=== PATIENT | female | born 1990 | race Caucasian/White ===

== ENCOUNTER 2021-02-23 13:00 | Emergency (ER) | payer BC ==
[2021-02-23] MEDS ORDERED: Ketorolac Tromethamine 30 MG/ML VIAL ONE (14:08)
[2021-02-23 14:22] LABS: #Eosinphils 0.1 10x3/uL (0.0-0.5); #Monocytes 0.8 10x3/uL (0.0-1.1); #Neutrophils 6.1 10x3/uL (1.5-8.4); %Basophils 0.3 % (0.0-2.0); %Lymphocytes 25.9 % (18.0-47.0); %Neutrophils 64.6 % (40.0-75.0); Hemoglobin 12.5 g/dL (12.0-15.5); Mean Corpuscular HGB CONC 32.6 g/dL (32.0-36.0); Mean Corpuscular Hemoglobin 26.4 pg (27.0-33.0); Mean Corpuscular Volume 80.8 fl (81.6-98.3); Mean Platelet Volume 11.2 fl (7.4-10.4); Platelet Count 295 10x3/uL (150-450); RBC Distribution Width 14.6 % (11.5-14.5); Red Blood Cell (RBC) Count 4.74 10x6/uL (3.90-5.03); White Blood Cell (WBC) Count 9.4 10x3/uL (3.5-10.5)
[2021-02-23 14:41] LABS: ALT (SGPT) 36 U/L (8-55); AST (SGOT) 47 U/L (5-34); Albumin 4.1 g/dL (3.5-5.0); Alkaline Phosphatase 88 U/L (40-110); Anion Gap 18 mmol/L (10-20); BUN (Urea Nitrogen) 9 mg/dL (7.0-18.7); Bilirubin, Total 0.8 mg/dL (0.2-1.2); Calc. Creatinine Clearance 0 mL/min (70-130); Carbon Dioxide 20 mmol/L (22-29); Chloride 105 mmol/L (98-107); Globulin 3.7 g/dL (2.4-3.5); Glucose 90 mg/dL (70-105); Potassium 5.6 mmol/L (3.5-5.1); Protein, Total 7.8 g/dL (6.0-8.3); Sodium 137 mmol/L (136-145)
[2021-02-23] MEDS ORDERED: Fentanyl 100 MCG/2 ML VIAL ONE (15:25)
== END 2021-02-23 16:15 | disposition home or self-care (01) ==
LOC: CSHERS 13:00
DX: R07.89 Other chest pain (principal); M79.7 Fibromyalgia; K21.9 Gastro-esophageal reflux disease without esophagitis
CPT/HCPCS: 36415; 71045; 80053; 84484; 85025; 85379; 93005; 96374; 96375; J1885; J3010

== ENCOUNTER 2022-03-04 08:12 | Outpatient (CLI) | payer BC | END 2022-03-04 08:13 | disposition home or self-care (01) | LOC: CSHWCC 08:12 | PROVIDERS: ATTEND Nurse Practitioner Family | DX: T81.89XD Other complications of procedures, not elsewhere classified, subsequent encounter (principal) | CPT/HCPCS: 97607; 99203; G0463 ==

== ENCOUNTER 2022-03-11 09:02 | Outpatient (CLI) | payer BC | END 2022-03-11 09:03 | disposition home or self-care (01) | LOC: CSHWCC 09:02 | PROVIDERS: ATTEND Nurse Practitioner Family | DX: T81.89XD Other complications of procedures, not elsewhere classified, subsequent encounter (principal) | CPT/HCPCS: 11042; 97605 ==

== ENCOUNTER 2022-03-18 09:58 | Outpatient (CLI) | payer BC | END 2022-03-18 09:59 | disposition home or self-care (01) | LOC: CSHWCC 09:58 | PROVIDERS: ATTEND Nurse Practitioner Family | DX: T81.89XD Other complications of procedures, not elsewhere classified, subsequent encounter (principal) | CPT/HCPCS: 99212; G0463 ==

== ENCOUNTER 2022-05-31 20:06 | Inpatient (IN) | payer BC ==
[2022-05-31 21:07] LABS: #Eosinphils 0.1 10x3/uL (0.0-0.5); #Neutrophils 6.3 10x3/uL (1.5-8.4); %Basophils 0.4 % (0.0-2.0); %Eosinophils 0.6 % (0.0-6.0); %Lymphocytes 31.8 % (18.0-47.0); %Monocytes 9.3 % (0.0-10.0); %Neutrophils 57.6 % (40.0-75.0); Hemoglobin 13.2 g/dL (12.0-15.5); Mean Corpuscular HGB CONC 32.6 g/dL (32.0-36.0); Mean Corpuscular Hemoglobin 26.5 pg (27.0-33.0); Mean Corpuscular Volume 81.3 fl (81.6-98.3); Mean Platelet Volume 10.2 fl (7.4-10.4); Platelet Count 319 10x3/uL (150-450); RBC Distribution Width 14.6 % (11.5-14.5); Red Blood Cell (RBC) Count 4.98 10x6/uL (3.90-5.03); White Blood Cell (WBC) Count 10.9 10x3/uL (3.5-10.5)
[2022-05-31] MEDS ORDERED: Ondansetron PF 4 MG/2 ML Vial ONE (21:18)
[2022-05-31 21:37] LABS: Anion Gap 13 mmol/L (10-20); BUN (Urea Nitrogen) 7 mg/dL (7.0-18.7); Calc. Creatinine Clearance 0 mL/min (70-130); Calcium 9.3 mg/dL (7.8-10.44); Carbon Dioxide 23 mmol/L (22-29); Chloride 104 mmol/L (98-107); Estimated GFR 108; Glucose 92 mg/dL (70-105); Sodium 136 mmol/L (136-145)
[2022-05-31 22:18] LABS: Bilirubin Neg (Negative); Blood, Urine Negative (Negative); Clarity Clear (Clear); Glucose, Urine (Dipstick) Normal (Negative); Ketone, Urine Negative (Negative); Leukocyte Negative (Negative); Nitrite Negative (Negative); Protein, Urine (Dipstick) Negative (Neg-Trace); Specific Gravity, Urine 1.005 (1.002-1.036); Urobilinogen Normal mg/dL (Less than 2)
[2022-05-31] MEDS ORDERED: Fentanyl 100 MCG/2 ML VIAL ONE (22:39)
[2022-06-01] MEDS ORDERED: Piperacillin/Tazobactam 3.375 GM VIAL ONE (00:13)
[2022-06-01] MEDS ORDERED: Fentanyl 100 MCG/2 ML VIAL SLOW IVP PRN ×2 (05:48→09:17)
[2022-06-01] MEDS ORDERED: Ondansetron PF 4 MG/2 ML Vial IVP PRN (05:48)
[2022-06-01] MEDS ORDERED: hydrALAZINE 20 MG/ML VIAL SLOW IVP PRN (05:48)
[2022-06-01] MEDS ORDERED: Acetaminophen 500 MG TAB PO PRN (05:48)
[2022-06-01] MEDS ORDERED: Promethazine HCl 25 MG/ML VIAL IM PRN (05:48)
[2022-06-01] MEDS ORDERED: Fluticasone Propionate Nasal Spray 16 gm Bottle NASAL PRN (05:54)
[2022-06-01] MEDS ORDERED: Loratadine 10 MG TAB PO PRN (05:56)
[2022-06-01] MEDS ORDERED: Prenatal Vitamin 1 TAB PO SCH ×2 (06:00→09:00)
[2022-06-01] MEDS ORDERED: Piperacillin/Tazobactam 3.375 GM in Sodium Chloride 0.9% 100 ML IVPB SCH (06:00)
[2022-06-01 06:56] LABS: #Neutrophils 4.1 10x3/uL (1.5-8.4); %Basophils 0.3 % (0.0-2.0); %Eosinophils 0.5 % (0.0-6.0); %Lymphocytes 32.5 % (18.0-47.0); %Monocytes 13.1 % (0.0-10.0); %Neutrophils 53.5 % (40.0-75.0); Hemoglobin 11.1 g/dL (12.0-15.5); Mean Corpuscular HGB CONC 32.7 g/dL (32.0-36.0); Mean Corpuscular Hemoglobin 26.7 pg (27.0-33.0); Mean Corpuscular Volume 81.5 fl (81.6-98.3); Mean Platelet Volume 10.4 fl (7.4-10.4); Platelet Count 260 10x3/uL (150-450); RBC Distribution Width 14.7 % (11.5-14.5); Red Blood Cell (RBC) Count 4.16 10x6/uL (3.90-5.03); White Blood Cell (WBC) Count 7.6 10x3/uL (3.5-10.5)
[2022-06-01] MEDS: Fluticasone Propionate Nasal Spray 16 gm Bottle NASAL SCH (08:23)
[2022-06-01] MEDS: Loratadine 10 MG TAB PO SCH (08:24)
[2022-06-01 08:29] VITALS: BMI 34.0
[2022-06-01] MEDS ORDERED: Citalopram 20 MG TAB PO SCH (09:00)
[2022-06-01] MEDS: Lactated Ringer's 1,000 ML IV SCH ×3 (09:02→22:25)
[2022-06-01] MEDS: Piperacillin/Tazobactam 3.375 GM in Sodium Chloride 0.9% 100 ML IVPB SCH ×2 (09:02→17:14)
[2022-06-01] MEDS: Citalopram 20 MG TAB PO SCH (09:03)
[2022-06-01] MEDS: Prenatal Vitamin 1 TAB PO SCH (09:03)
[2022-06-01] MEDS ORDERED: traMADol HCl 50 MG TAB PO PRN (09:12)
[2022-06-01] MEDS: Acetaminophen 500 MG TAB PO SCH ×3 (10:01→22:11)
[2022-06-01] MEDS: traMADol HCl 50 MG TAB PO PRN ×2 (13:07→20:34)
[2022-06-02] MEDS: Piperacillin/Tazobactam 3.375 GM in Sodium Chloride 0.9% 100 ML IVPB SCH ×3 (00:07→15:43)
[2022-06-02] MEDS: Acetaminophen 500 MG TAB PO SCH ×4 (04:03→22:05)
[2022-06-02 04:18] LABS: Hemoglobin 11.6 g/dL (12.0-15.5); Mean Corpuscular HGB CONC 33.5 g/dL (32.0-36.0); Mean Corpuscular Volume 80.5 fl (81.6-98.3); Mean Platelet Volume 10.4 fl (7.4-10.4); Platelet Count 267 10x3/uL (150-450); RBC Distribution Width 14.9 % (11.5-14.5); White Blood Cell (WBC) Count 6.8 10x3/uL (3.5-10.5)
[2022-06-02 05:08] LABS: MDiff Complete? YES
[2022-06-02 05:13] LABS: Band 1 % (5-11); Eosinophils 1 % (0-10); Lymphocytes 48 % (21-51); Monocytes 8 % (0-10); Neutrophil 38 % (42-75); Reactive Lymphocytes 4 % (0-10)
[2022-06-02 05:15] LABS: Platelet Morphology Comment Appears Adequate
[2022-06-02 05:16] LABS: RBC Morphology Normal
[2022-06-02] MEDS: Lactated Ringer's 1,000 ML IV SCH ×2 (07:17→16:20)
[2022-06-02] MEDS: Prenatal Vitamin 1 TAB PO SCH (08:22)
[2022-06-02] MEDS: Citalopram 20 MG TAB PO SCH (08:22)
[2022-06-02] MEDS: Fluticasone Propionate Nasal Spray 16 gm Bottle NASAL SCH (08:28)
[2022-06-02] MEDS: Loratadine 10 MG TAB PO SCH (08:28)
[2022-06-02] MEDS: traMADol HCl 50 MG TAB PO PRN (12:25)
[2022-06-03] MEDS: Piperacillin/Tazobactam 3.375 GM in Sodium Chloride 0.9% 100 ML IVPB SCH (01:18)
[2022-06-03] MEDS: Acetaminophen 500 MG TAB PO SCH ×2 (05:22→09:47)
[2022-06-03] MEDS: Lactated Ringer's 1,000 ML IV SCH (05:56)
[2022-06-03] MEDS ORDERED: Ondansetron ODT 4 MG TAB PO SCH (07:45)
[2022-06-03] MEDS: Prenatal Vitamin 1 TAB PO SCH (07:52)
[2022-06-03] MEDS: Citalopram 20 MG TAB PO SCH (07:53)
[2022-06-03] MEDS ORDERED: Amoxicillin/Potassium Clav 875 MG TAB PO SCH (08:00)
[2022-06-03] MEDS: Fluticasone Propionate Nasal Spray 16 gm Bottle NASAL SCH (08:07)
[2022-06-03] MEDS: Loratadine 10 MG TAB PO SCH (08:07)
[2022-06-03 11:50] VITALS: BP 134/73; TEMP 98.4
== END 2022-06-03 13:27 | disposition home or self-care (01) | DRG 832 ==
LOC: CSHERS 20:06 → CSHPP 06-01 01:30
PROVIDERS: ADMIT Obstetrics & Gynecology; ATTEND Obstetrics & Gynecology
DX: O99.611 Diseases of the digestive system complicating pregnancy, first trimester (principal); K57.20 Diverticulitis of large intestine with perforation and abscess without bleeding; Z20.822 Contact with and (suspected) exposure to COVID-19; Z3A.01 Less than 8 weeks gestation of pregnancy; K21.9 Gastro-esophageal reflux disease without esophagitis; O34.81 Maternal care for other abnormalities of pelvic organs, first trimester; N83.202 Unspecified ovarian cyst, left side; M79.7 Fibromyalgia; O99.891 Other specified diseases and conditions complicating pregnancy; F32.A Depression, unspecified; O99.841 Bariatric surgery status complicating pregnancy, first trimester; F41.9 Anxiety disorder, unspecified; O99.341 Other mental disorders complicating pregnancy, first trimester; Z79.899 Other long term (current) drug therapy; Z90.89 Acquired absence of other organs; Z88.5 Allergy status to narcotic agent; Z88.8 Allergy status to other drugs, medicaments and biological substances
CPT/HCPCS: 36415; 74181; 76856; 80048; 81003; 84702; 85025; 86900; 86901; 87086; 96361; 96365; 96375; J2405; J2543; J3010; J3490; J7120; Q0162; U0003; U0005

== ENCOUNTER 2022-07-11 10:17 | Day surgery (SDC) | payer BC ==
[2022-07-07 14:45] VITALS: BMI 34.3
[2022-07-11] MEDS ORDERED: Lidocaine 1% MPF 2 ML VIAL ONE (11:05)
[2022-07-11] MEDS ORDERED: Fentanyl 100 MCG/2 ML VIAL ONE (11:38)
[2022-07-11] MEDS ORDERED: Methylergonovine 0.2 MG/ML VIAL ONE (11:38)
[2022-07-11] MEDS ORDERED: PROPOFOL 20 ML ONE (11:38)
[2022-07-11] MEDS ORDERED: Ondansetron PF 4 MG/2 ML Vial ONE (11:41)
[2022-07-11] MEDS ORDERED: Dexamethasone 20 MG/5 ML VIAL ONE (11:41)
[2022-07-11] MEDS ORDERED: Lidocaine 2% PF 5 ML VIAL ONE (11:42)
[2022-07-11] MEDS ORDERED: Ketorolac Tromethamine 30 MG/ML VIAL ONE (11:42)
[2022-07-11] MEDS ORDERED: CEFAZOLIN 2 GM VIAL ONE (11:46)
[2022-07-11] MEDS ORDERED: Lidocaine 1% PF 5 ML VIAL ONE (12:21)
== END 2022-07-11 14:30 | disposition home or self-care (01) ==
LOC: CSHSDC 10:17
PROVIDERS: ATTEND Obstetrics & Gynecology
PROC: 10D17ZZ Extraction of Products of Conception, Retained, Via Natural or Artificial Opening (ICD-10-PCS; principal; 2022-07-11)
DX: O02.89 Other abnormal products of conception (principal); M79.7 Fibromyalgia; M35.2 Behcet's disease; M19.90 Unspecified osteoarthritis, unspecified site; Z79.899 Other long term (current) drug therapy; Z88.5 Allergy status to narcotic agent; Z88.8 Allergy status to other drugs, medicaments and biological substances; Z20.822 Contact with and (suspected) exposure to COVID-19; Z98.890 Other specified postprocedural states
CPT/HCPCS: 36415; 86850; 86900; 86901; 88305; J0690; J1100; J1885; J2001; J2210; J2405; J2704; J3010